=== PATIENT | female | born 1945 ===

== ENCOUNTER 2018-07-23 21:04 | Emergency (ER) | payer MEDICARE, OTHER ==
--- NOTE | 2018-07-23 21:09 | ED PDOC ---
Arrival/HPI - General Historian: Patient - History of Present Illness Narrative History of Present Illness (Text): 07/23/18 21:13 73 y/o female, pmh including htn/hld/vertigo, nkda, c/o chronic vertigo for months and started again with dizziness with nausea/vomiting x 5 days. Pt. has been having on and off vomiting/nausea for the past 5 days, associated with dizziness as room spinning, no change in vision, no numbness or tingling, no ear pain or discharge, no headache, no night sweat, no rash, no other medical or psychological complaints. Past Medical History - Provider Review Nursing Documentation Reviewed: Yes Family/Social History - Physician Review Nursing Documentation Reviewed: Yes Family/Social History: Unknown Family HX Allergies/Home Meds Allergies/Adverse Reactions: Allergies No Known Allergies Allergy (Verified 07/23/18 21:14) Home Medications: Home Meds Medication Instructions Recorded Confirmed Atorvastatin [Lipitor] 1 tab PO DAILY 07/23/18 07/23/18 Furosemide [Lasix] 1 tab PO DAILY 07/23/18 07/23/18 Lisinopril [Zestril] 1 tab PO DAILY 07/23/18 07/23/18 Meclizine [Antivert] 1 tab PO PRN PRN 07/23/18 07/23/18 Metoprolol Tartrate [Lopressor] 1 tab PO DAILY 07/23/18 07/23/18 Review of Systems - Review of Systems Constitutional: absent: Fatigue, Fevers Eyes: absent: Vision Changes ENT: absent: Hearing Changes, Tinnitus, TMJ Pain, Sore Throat, Epistaxis Respiratory: absent: SOB, Cough Cardiovascular: absent: Chest Pain Gastrointestinal: Nausea, Vomiting. absent: Abdominal Pain Musculoskeletal: absent: Arthralgias, Back Pain Skin: absent: Rash, Pruritis Neurological: Dizziness. absent: Headache, Focal Weakness, Facial Droop Psychiatric: absent: Anxiety, Depression Physical Exam Vital Signs Reviewed: Yes Temperature: Afebrile Blood Pressure: Normal Pulse: Regular Respiratory Rate: Normal Appearance: Positive for: Well-Appearing, Non-Toxic, Comfortable Pain Distress: None Mental Status: Positive for: Alert and Oriented X 3 - Systems Exam Head: Present: Atraumatic, Normocephalic Pupils: Present: PERRL Extroacular Muscles: Present: EOMI Conjunctiva: Present: Normal Ears: Present: Normal, NORMAL TM, Normal Canal, Other (Ears: bilateral TMs nadia color and intact, bilateral auditory canal is patent with no erythematous or swelling with no discharges either, hearing grossly equal and intact, ear auricle with no protrusion or swelling, no mastoid tenderness/swelling or erythematous, no pain on the ear during examination and palpation, no facial palsy. ). No: Erythema, TM Bulging, Fluid, TM Perf Mouth: Present: Moist Mucous Membranes Pharnyx: Present: Normal. No: ERYTHEMA, EXUDATE, TONSILS ENLARGED, Uvular Deviation, Strider Nose (External): Present: Atraumatic. No: Abrasion, Contusion, Laceration Nose (Internal): Present: Normal Inspection, No Active Bleeding. No: Rhinorrhea, Septal Hematoma, Epistaxis Neck: Present: Normal Range of Motion Respiratory/Chest: Present: Clear to Auscultation, Good Air Exchange. No: Respiratory Distress, Accessory Muscle Use Cardiovascular: Present: Regular Rate and Rhythm, Normal S1, S2. No: Murmurs Abdomen: No: Tenderness, Distention, Peritoneal Signs, Rebound, Guarding Back: Present: Normal Inspection Upper Extremity: Present: Normal Inspection, Normal ROM, NORMAL PULSES, Neurovascularly Intact. No: Cyanosis, Edema, Deformity Lower Extremity: Present: Normal Inspection, Normal ROM, Neurovascularly Intact. No: Edema, Deformity Neurological: Present: GCS=15, CN II-XII Intact, Speech Normal, Motor Func Grossly Intact, Gait Normal, Memory Normal Skin: Present: Warm, Dry, Normal Color. No: Rashes Psychiatric: Present: Alert, Oriented x 3, Normal Insight, Normal Concentration Medical Decision Making ED Course and Treatment: 07/23/18 21:14 -Labs -CT head -IVF/meclizine and pepcid -Observe and raises 07/23/18 23:51 -EKG: NSR @ 77 BPM, no ST elevation or depression, no T wave invers -CT Head preliminary read: There is generalized parenchymal atrophy noted as demonstrated by symmetrical dilatation of ventricles and sulci. 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 Right mastoiditis is noted. No acute intracranial pathology. -Labs show no acute findings -Mg within normal limit -Trop negative after 24 hours. -Pt. is walking around, no focal neurological deficits, labs/radiology results discussed, request to be discharged home. -I reviewed the CT head report from [facility] by radiologist "Dr. Gregorio Choudhury from 07/20/2018 19:29 show there is oacification of the inferior right mastoids currently, more so than previous." Previous ER team from [place] and the patient/family are awared of this findings and the CT head stated more so than previous which this is chronic findings. Pt. and family is awared of the result and scheduled to see the ENT this week Monday07/27/2018 as she has no ear pain or mastoid region pain, she has no facial palsy either. She was clear from the [facility] -CT head from the [facility] seems to be over read and not consistent to the CT head 3 days ago and physical exam with patient's complaint. I discussed and share the results/findings with the ER attending Dr. Diaz and he suggest to discharge home with no antibiotics as this can be follow up outpatient with ENT and she is. -I offered overnight observation for the patient with family but she refused, she request to go home. -Discharge home with pepcid, meclizine, stay hydrated, follow up with your own pmd and neurologist/ENT within 2 days, return to the ER for any new or worsening signs or symptoms including any headache/ear pain. - RAD Interpretation Radiology Orders: EXAM: CT Head without Intravenous Contrast. CLINICAL HISTORY: HEADACHE TECHNIQUE: Axial computed tomography images of the head/brain without intravenous contrast. 921.00 mGy-cm COMPARISON: None provided. 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 VENTRICLES: There is generalized parenchymal atrophy noted as demonstrated by symmetrical dilatation of ventricles and sulci. ORBITS: The orbits are unremarkable. SINUSES AND MASTOIDS: Right mastoiditis is noted. BONES: No fracture. SOFT TISSUES: Unremarkable. MISCELLANEOUS: No acute intracranial pathology. IMPRESSION: 1. There is generalized parenchymal atrophy noted as demonstrated by symmetrical dilatation of ventricles and sulci. 2. 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 3. Right mastoiditis is noted. 4. No acute intracranial pathology. Electronically signed on Jul 23, 2018 10:27:00 PM EST by: Gregorio Farah M.D., ZACKARY Certified By [facility] [employer] [facility] Fellowship Trained MRI and CT Specialist Sales Appointment Coordinator: Radiologist - PA / ELECTRIC DOLLY OPERATOR / Resident Statement MD/DO has reviewed & agrees with the documentation as recorded. Disposition/Present on Arrival - Present on Arrival Any Indicators Present on Arrival: No History of DVT/PE: No History of Uncontrolled Diabetes: No Urinary Catheter: No History of Decub. Ulcer: No - Disposition Have Diagnosis and Disposition been Completed?: Yes Diagnosis: Vertigo, Abnormal CT scan, head Disposition: HOME/ ROUTINE Disposition Time: 23:55 Patient Plan: Discharge Condition: IMPROVED Additional Instructions: -Discharge home with pepcid, meclizine, stay hydrated, follow up with your own pmd and neurologist/ENT within 2 days, return to the ER for any new or worsening signs or symptoms. Prescriptions: Famotidine [Pepcid] 20 mg PO BID #20 tab Meclizine [Meclizine*] 25 mg PO Q6 #30 tab Referrals: Elan Diallo MD [Primary Care Provider] - Follow up with primary Jeff Abbott DO [Staff Provider] - Follow up with primary Samy Aldana MD [Staff Provider] - Follow up with primary Forms: WORK NOTE
[2018-07-23 21:24] VITALS: RESP 18; TEMP 97.8
[2018-07-23] MEDS ORDERED: Sodium Chloride 0.9% 1,000 ML IV SCH ×2 (21:30→22:28)
[2018-07-23 21:52] LABS: BASO # 0.01 K/mm3 (0.0-2.0); BASO % 0.1 % (0.0-3.0); EOS # 0.1 (0.0-0.7); EOS % 0.9 % (1.5-5.0); GRAN # 4.38 (1.4-6.5); GRAN % 62.6 % (50.0-68.0); HEMOGLOBIN 15.2 g/dL (12.0-16.0); LYMPH # 1.9 (1.2-3.4); LYMPH % 27.5 % (22.0-35.0); MEAN CELL VOLUME 88.4 fl (80.0-105.0); MEAN CORPUSCULAR HEMOGLOBIN 29.4 pg (25.0-35.0); MEAN CORPUSCULAR HGB CONC 33.3 g/dl (31.0-37.0); MEAN PLATELET VOLUME 11.1 fl (7.0-11.0); MONO # 0.6 (0.1-0.6); MONO % 8.9 % (1.0-6.0); RBC 5.17 10^6/uL (3.5-6.1); RED CELL DISTRIBUTION WIDTH 13.5 % (11.5-14.5)
[2018-07-23 22:04] LABS: ALB/GLOB RATIO 1.3 (1.1-1.8); ALBUMIN 4.4 g/dL (3.0-4.8); ALT/SGPT 38 U/L (7-56); AST/SGOT 28 U/L (14-36); BLOOD UREA NITROGEN 16 mg/dL (7-21); CALCIUM 9.1 mg/dL (8.4-10.5); GFR NON-AFRICAN AMERICAN > 60
[2018-07-23 22:15] LABS: TROPONIN I < 0.01 ng/mL
[2018-07-23 22:20] LABS: B-TYPE NATRIURETIC PEPTIDE 50.3 pg/mL (0-450)
[2018-07-24 02:44] VITALS: BP 131/89; PULSE 85; O2SAT 100
--- NOTE | 2018-07-24 09:44 | CT ---
Date of service: 07/23/2018 PROCEDURE: CT HEAD WITHOUT CONTRAST. HISTORY: headache and dizziness x 5 days. COMPARISON: None available. TECHNIQUE: Axial computed tomography images were obtained through the head/brain without intravenous contrast. Supplemental Coronal and Sagittal projections created and reviewed. Radiation dose: Total exam DLP = 921.41 mGy-cm. This CT exam was performed using one or more of the following dose reduction techniques: Automated exposure control, adjustment of the mA and/or kV according to patient size, and/or use of iterative reconstruction technique. FINDINGS: HEMORRHAGE: No intracranial hemorrhage. BRAIN: No mass effect or edema. Cortical atrophy and chronic microvascular ischemic change. VENTRICLES: Unremarkable. No hydrocephalus. CALVARIUM: Unremarkable. PARANASAL SINUSES: Unremarkable as visualized. No significant inflammatory changes. MASTOID AIR CELLS: Unilateral, right mastoid air cell disease noted. OTHER FINDINGS: None. IMPRESSION: No acute intracranial abnormalities. No significant findings to account for the clinical presentation. Extensive right mastoid air cell disease noted. Concordant results (preliminary interpretation) provided by [facility]. Procedure Completed: 21:37 Preliminary Report: Dictated and Authenticated: 22:27. Final Interpretation: 09:40. July 24, 2018
--- NOTE | 2018-07-24 18:52 | CARD ---
APPROVED REPORT Date of service: 07/23/2018 EKG Measurement Heart [id number] <Conclusion> Normal sinus rhythm Normal ECG
== END 2018-07-24 00:05 | disposition home or self-care (01) ==
LOC: ED 21:04
DX: R42 Dizziness and giddiness (principal); R93.0 Abnormal findings on diagnostic imaging of skull and head, not elsewhere classified; I10 Essential (primary) hypertension; E78.5 Hyperlipidemia, unspecified
CPT/HCPCS: 70450; 80053; 82550; 83615; 83735; 83880; 84484; 85025; 93005; 96374; 96375; 99285; J2405; J7030